=== PATIENT | female | born 1975 | race Caucasian/White ===

== ENCOUNTER 2017-12-31 14:33 | Outpatient (CLI) | payer SELFPAY ==
[2014-06-23 22:00] VITALS: BP 115/75
--- NOTE | 2018-01-02 12:13 | OP Clinic Progress Note ---
REASON FOR VISIT: This 42-year-old female was seen with some trouble swallowing. She points to the area around the hyoid or just below this. It is not so much a sensation in her chest. She had an upper respiratory tract infection about a month ago and her throat simply stayed a little bit tight and has a little tension in the throat when she swallows. It can be really any time of day. There is not a preponderance to morning, noon, or at night. The symptoms tend to come and go a little bit. At one time, she had been a pack-a-day smoker and is down to maybe half a pack a day more recently. She occasionally is just very slightly hoarse. Examination shows an alert pleasant female. Her voice is not particularly hoarse. She does have a significant amount of wax in the right ear and by history, the right ear has always had a significant amount of wax in it. The left ear is clear. Under the microscope, I debrided and cleaned the wax out of the right ear. The eardrum is normal. The oral cavity does not have any obvious lesions in it. The tonsils are 1+ to 2+ in size with some rugation. The nose has some mild diffuse rhinitis but no gross evident polyps. There is no severe nasal septal deviation. There is no gross cervical lymphadenopathy. She is very slightly tender over the midline of the neck. With a fiberoptic scope transorally, she has just very mild edema of the soft palate of the posterior portion of the oropharynx and the tongue base and the arytenoids are mildly edematous. I did not see any specific lesion on the vocal cords and there is no paralysis. PLAN: She has more of an impression of postviral mild pharyngitis. I would like to give her a trial of Valtrex 1 gram a day for 3 weeks. I will recheck and re- evaluate her at the end of that time. cc: JULIO Vyas
== END 2017-12-31 14:35 ==
LOC: ENT 14:33
PROVIDERS: ATTEND Otolaryngology
DX: J02.9 Acute pharyngitis, unspecified (principal)
CPT/HCPCS: 69210; 99213

== ENCOUNTER 2018-05-22 01:43 | Emergency (ER) | payer SELFPAY ==
[2018-05-22] MEDS ORDERED: 0.9 % SODIUM CHLORIDE 1,000 ML IV ONE (02:12)
--- NOTE | 2018-05-22 02:16 | ED Physician Documentation ---
General Adult - HISTORIAN Historian: patient - HPI Stated Complaint: rapid heart rate Chief Complaint: General Adult Additional Information: Awakened from sleep about 10 minutes ago with rapid heart rate. Denies any pain. Never had this before. Seen at [facility] a few days ago for feeling light headed. Had EKG done then. Says no diagnosis was made and that she did not have rapid heart rate then. Denies drug, ETOH use. No other modifying factors or associated signs. - ROS CONST: no problems - PAST HX Past History: none, other (anxiety) Surgeries/Procedures: hysterectomy Allergies/Adverse Reactions: Allergies Allergy/AdvReac Type Severity Reaction Status Date / Time No Known Allergies Allergy Verified 06/23/14 22:00 Home Medications: Ambulatory Orders Medication Instructions Recorded Atenolol 50 mg PO DAILY #30 tablet 05/22/18 - SOCIAL HX Smoking History: cigarettes Alcohol Use: none Drug Use: none - FAMILY HX Family History: Yes (M with unknown cancer) - VITAL SIGNS Vital Signs: Vital Signs Temp Pulse Resp BP Pulse Ox 115/75 06/24/14 00:42 - REVIEWED ASSESSMENTS Nursing Assessment Reviewed: Yes Vitals Reviewed: Yes Progress - Progress Progress: 0212, EKG faxed to [facility] and release signed by pt for records of her visit there a few days ago. 0435, discussed with Yamile director transportation at [facility]. EK BPM. Report Submission Date: May 22, 2018 2:46:32 AM CDT Patient Study Name: FRANSISCO DUGAN I Date: May 22, 2018 2:24:42 AM CDT Modality Type: DX Gender: F Description: CHEST : 73 Institution: [facility] Physician: SARIKA ARCEO - RU PA and lateral chest Clinical history: HEART PALPITATIONS LAST NIGHT. WOKE PATIENT FROM SLEEP. DENIES HEART HX. Findings: Examination of the chest in PA and lateral views demonstrates the lungs to be clear. The cardiovascular and mediastinal silhouettes are within normal limits. Monitor leads superimpose the chest. Impression: 1. No active disease. Electronically signed on May 22, 2018 2:46:32 AM CDT by: David De La O 6 mg adenosine IVP w/o affect. 0255, 12 mg adenosine IVP with heart rate to 90's. Records reviewed from pt's 04/29/18 ER visit at [facility]. Thought to have symptoms of anxiety. Pt does not want ambulance bill for transfer to [facility]. Says she has rights and can stay in the ER as long as she wants. Explained that she could be transferred or sign out AMA, that appropriate treatment was not lying in ER. She says she has rights, that I am being hateful, that I tried to put a dirty syringe in her mouth. (she had thrown/dropped the syringe on the floor and it had been scrubbed with soap and water). 0327, discussed pt with Dr. Jolley, cardiology, [facility]. He recommends 50 mg atenolol daily and follow up with cardiology or primary care. ED Results Lab/Radiology - Orders Orders: ED Orders Category Date Time Status Continuous EKG monitoring Q1H Care 05/22/18 02:[address] IV Lock 1T Care 05/22/18 02:09 Ordered CHEST 2VIEW [RAD] Stat Exams 05/22/18 Ordered CBC/PLATELET/DIFF Routine Lab 05/22/18 Ordered CMP Routine Lab 05/22/18 Ordered DRUG SCREEN 8,URINE Stat Lab 05/22/18 Ordered ETHANOL REF Stat Lab 05/22/18 Ordered TROPONIN I (cTnI) Stat Lab 05/22/18 Ordered URINALYSIS Routine Lab 05/22/18 Ordered NORMAL SALINE @ 500 MLS/HR ( 1000ml BOLUS) Med 05/22/18 02:12 Ordered 0.9 % Sodium Chloride [Normal Saline] 1,000 ml IV Q2H EKG WITH COMPARISON Stat Ther 05/22/18 Ordered General Adult Physical Exam - PHYSICAL EXAM GENERAL APPEARANCE: moderate distress EENT: eye inspection normal, ENT inspection normal, pharynx normal (Mallampati 2), dry mucous membranes NECK: normal inspection RESPIRATORY: no resp distress, chest non-tender, breath sounds normal CVS: reg rate & rhythm, tachycardia (140's) ABDOMEN: soft, normal bowel sounds, non-tender BACK: normal inspection, no CVA tenderness, other (no vertebral tenderness) SKIN: warm/dry, normal color, other (tattoos) EXTREMITIES: non-tender, no evidence of injury NEURO: CN's nml as tested, motor nml, sensation nml, cognition normal Discharge Clincal Impression: SVT (supraventricular tachycardia) Referrals: Kaye,Eliud, JULIO [Primary Care Provider] - 2 Days Additional Instructions: Make an appointment with Dr. Jolley, cardiology clinic at [facility], in the next 2 weeks. That number is [phone]. Or make an appointment with a primary care provider to be seen in the next 2 weeks. The phone number for the [facility] next door is [phone]. Return to the ER if your condition worsens. Your prescription is at [facility]. The medication is also used to treat high blood pressure. See a provider sooner if you feel light headed. Condition: Good Disposition: 01 HOME, SELF-CARE Decision to Admit: NO Decision Time: 03:40
[2018-05-22] MEDS ORDERED: hydrOXYzine HCL 50 MG/ML VIAL IM ONE (02:26)
[2018-05-22 02:41] LABS: BASOPHILS % 0.7 (0.0-1.5); EOSINOPHILS % 3.8 % (0.0-6.8); MEAN CORPUSCULAR HEMOGLOBIN 34.2 pg (28.0-34.0); MEAN CORPUSCULAR VOLUME 98.6 fl (80.0-100.0); MONOCYTES % 4.9 % (0.0-11.0); NEUTROPHILS # 4.5 # k/uL (1.4-7.7)
[2018-05-22 02:42] LABS: eGFR (African) > 60; eGFR (Non-African) > 60
[2018-05-22] MEDS ORDERED: ADENOSINE 6 MG/2 ML VIAL IVP ONE ×3 (02:48→02:55)
--- NOTE | 2018-05-22 02:49 | Diagnostic Imaging Report ---
SARIKA ARCEO [facility] [address] [facility] [address] [place] [address]. [id number] Report Submission Date: May 22, 2018 2:46:32 AM CDT Patient Study Name: FRANSISCO DUGAN I Date: May 22, 2018 2:24:42 AM CDT Modality Type: DX Gender: F Description: CHEST : 73 Institution: [facility] Physician: SARIKA ARCEO PA and lateral chest Clinical history: HEART PALPITATIONS LAST NIGHT. WOKE PATIENT FROM SLEEP. DENIES HEART HX. Findings: Examination of the chest in PA and lateral views demonstrates the lungs to be clear. The cardiovascular and mediastinal silhouettes are within normal limits. Monitor leads superimpose the chest. Impression: 1. No active disease. Electronically signed on May 22, 2018 2:46:32 AM CDT by: David MOTTA
[2018-05-22] MEDS ORDERED: ATENOLOL 25 MG TABLET PO ONE (03:38)
[2018-05-22 04:10] VITALS: BP 113/82
[2018-05-22 07:59] LABS: APPEARANCE,URINE CLEAR (CLEAR); CANNABINOIDS NEGATIVE ng/mL (< 50); COLOR,URINE YELLOW (YELLOW); METHYLENEDIOXYMETHAMPHETAMINE NEGATIVE ng/mL (<500); OCCULT BLOOD,URINE TRACE-INTACT (NEGATIVE); UROBILINOGEN URINE 0.2 Eu (0.2-1.0)
[2018-05-22] MEDS ORDERED: ATENOLOL 25 MG TABLET PO SCH (09:00)
== END 2018-05-22 03:50 | disposition home or self-care (01) ==
LOC: ED 01:43
DX: I47.1 Supraventricular tachycardia (principal); N39.0 Urinary tract infection, site not specified
CPT/HCPCS: 71046; 80053; 80320; 80377; 81002; 84484; 85025; J0153; J3410; J7030; 96365; 96366; 96372; 96375; 96376; G0480; G0481; S1016